=== PATIENT | male | born 1975 | race Caucasian/White ===

== ENCOUNTER 2025-03-02 15:56 | Emergency (ER) | payer BC | END 2025-03-02 16:41 | disposition home or self-care (01) | LOC: CSHERS 15:56 | DX: S01.512A Laceration without foreign body of oral cavity, initial encounter (principal); I10 Essential (primary) hypertension; X58.XXXA Exposure to other specified factors, initial encounter | CPT/HCPCS: 99282 ==

== ENCOUNTER 2025-04-19 09:52 | Outpatient (CLI) | payer BC | END 2025-04-19 09:53 | disposition home or self-care (01) | LOC: CSHSLEEP 09:52 | PROVIDERS: ATTEND Internal Medicine Critical Care Medicine | DX: G47.33 Obstructive sleep apnea (adult) (pediatric) (principal); F32.A Depression, unspecified; E11.9 Type 2 diabetes mellitus without complications; I10 Essential (primary) hypertension | CPT/HCPCS: 95800 ==